=== PATIENT | female | born 1960 | race African-American/Black ===

== ENCOUNTER 2016-11-01 13:05 | Emergency (ER) | payer OTHER ==
[~2016-11-01 13:05] MED LIST: ANTIVERT PO; ASPIRIN81 M2 PO; BACTRIM DS TABL1 TAB PO; CIPRO PO; DARVOCET-N 1001 TAB PO; FISH OIL 1,001000 M1 PO; FLEXERIL10 MG PO; HCTZ; HCTZ PO; HYDROCODON-ACE1 EAC7 PO; K-DUR20 ME1 PO; LISINOPRIL PO; LISINOPRIL-HCTZ1 T15 PO; MEDROL4 MG/DOSE- PO; NORVASC PO; PYRIDIUM PO; SIMVASTATIN80 MG PO; VICODIN PO; VITAMIN D22000 UNIT PO; ZESTORETIC 20-1 EACH PO; ZITHROMAX1 G/PKT PO
== END 2016-11-01 14:15 | disposition home or self-care (01) ==
LOC: CFTX 13:05
DX: J45.22 Mild intermittent asthma with status asthmaticus (principal); I10 Essential (primary) hypertension; F17.210 Nicotine dependence, cigarettes, uncomplicated; Z90.710 Acquired absence of both cervix and uterus; Z90.49 Acquired absence of other specified parts of digestive tract; Z88.5 Allergy status to narcotic agent; Z91.040 Latex allergy status
CPT/HCPCS: 94640; 99283

== ENCOUNTER → 2017-01-22 | Outpatient (CLI) | payer OTHER ==
--- NOTE | ~2017-01-22 | CR229 ---
[facility] A Service of [facility] & [facility] RADIOLOGY TEXT RESULTS PATIENT: MINI GILBERT LOCATION: [facility] : 58 UNIT #: [id number] AGE: [address]: Katy Quigley APRN SEX: F ORDER DR: [id number] [facility] [address], [place] [address] [id number] MR#: [id number] Acc #: [id number] NAME: MINI GILBERT. : 1960 SEX: F STUDY DATE/TIME: 01/22/2017 12:36 UNIT: [facility] ROOM: STUDY DESCRIPTION: CR Shoulder Min 2 View Lt Attending Physician: Katy Quigley Aprn Referring Physician: Katy Quigley Aprn Ordering Physician: Katy Quigley Aprn Primary Care Physician: Alix Kwon M.D. MEDICAL IMAGING REPORT This report is preliminary unless electronic signature is present EXAM Left shoulder 01/22/2017 HISTORY 56-year-old female with left shoulder pain for 5 years after falling down stairs. COMPARISON Left shoulder 01/16/2015. FINDINGS 3 views of the left shoulder demonstrate no acute fracture or dislocation. Mild degenerative change of the acromioclavicular joint. Soft tissues are unremarkable. IMPRESSION No acute fracture or dislocation. Mild acromioclavicular joint arthrosis. Dictated by... Castro Slater M.D. THIS IS AN ELECTRONICALLY VERIFIED REPORT Castro Slater M.D. at 01/23/2017 8:33 AM JWILMAN/pcl TD: 01/22/2017 23:46 JOB #: [id number] MEDICAL IMAGING REPORT Page 1 of 1 COPY
== END | disposition home or self-care (01) ==
LOC: CRAD 11:53
DX: M25.512 Pain in left shoulder (principal); M19.012 Primary osteoarthritis, left shoulder
CPT/HCPCS: 73030

== ENCOUNTER 2017-02-08 12:50 | Emergency (ER) | payer OTHER ==
[~2017-02-08] VITALS: Ht 160 cm; Wt 71.7 kg
--- NOTE | ~2017-02-08 | CT71 ---
[facility] A Service of [facility] RADIOLOGY TEXT RESULTS PATIENT: MINI GILBERT LOCATION: [facility] : 58 UNIT #: [id number] AGE: [address]: Fan Castañeda MD SEX: F ORDER DR: [id number] [place] [id number] [facility]. [place], [place] [address] [id number] MR#: [id number] Acc #: [id number] NAME: MINI GILBERT. : 1960 SEX: F STUDY DATE/TIME: 02/08/2017 14:19 UNIT: [facility] ROOM: STUDY DESCRIPTION: CT Head Wo Contrast Attending Physician: Fan Castañeda M.D. Ordering Physician: Fan Castañeda M.D. Primary Care Physician: Alix Kwon M.D. MEDICAL IMAGING REPORT This report is preliminary unless electronic signature is present EXAM CT head INDICATIONS Headache, dizziness, blurred vision. TECHNIQUE CT of the head without contrast. This CT exam was performed with one or more of the following radiation dose reduction techniques: Automatic exposure control, adjustment of mA and/or kV according to patient size, and iterative reconstruction. COMPARISON CT head dated 01/07/2013. FINDINGS There is no acute intracranial hemorrhage, mass lesion, or acute infarct. There is an area of hypodensity within the medial right temporal lobe indicative of prior infarct. This is unchanged from the prior study. There is a similar area in the superior aspect of the right parietal lobe. There is some chronic small vessel changes. There is a hyperdense extraaxial mass along the right frontal convexity. This measures up to 1.5 cm. This measured up to 1.4 cm on the prior study. I suspect this represents a meningioma. Given stability, this is almost certainly a benign meningioma. No acute osseous abnormalities. IMPRESSION 1. There is no acute findings. 2. Hypodensities within the periventricular and subcortical white matter indicative of either chronic small vessel changes or old lacunar infarcts. [facility] A Service [facility] RADIOLOGY TEXT RESULTS PATIENT: MINI GILBERT LOCATION: [facility] #: [id number] : 58 UNIT #: [id number] AGE: [address]: Fan Castañeda MD SEX: F ORDER DR: 3. Hyperdense extraaxial mass along the right frontal convexity. In retrospect, this small lesion is unchanged from exams dating back to at least 2012. This has appearance typical for a meningioma. The temporal stability is also reassuring for a benign etiology. Dictated by... Delmar Dick M.D. THIS IS AN ELECTRONICALLY VERIFIED REPORT Delmar Dick M.D. at 02/09/2017 8:07 AM Pratik/beny TD: 02/08/2017 23:33 JOB #: [id number] MEDICAL IMAGING REPORT Page 1 of 1 COPY
== END 2017-02-08 15:51 | disposition home or self-care (01) ==
LOC: CED 12:50
DX: G89.29 Other chronic pain (principal); R51 Headache; I10 Essential (primary) hypertension; J45.909 Unspecified asthma, uncomplicated; Z90.710 Acquired absence of both cervix and uterus; Z90.49 Acquired absence of other specified parts of digestive tract; F17.200 Nicotine dependence, unspecified, uncomplicated; Z88.5 Allergy status to narcotic agent; Z91.040 Latex allergy status
CPT/HCPCS: 36415; 70450; 96374; 96375; 99284; J0780; J1200; J1885; J2930